=== PATIENT | male | born 1995 ===

== ENCOUNTER 2017-06-18 11:17 | Observation (INO) | payer MEDICAID ==
[2017-06-18 13:08] LABS: HEMOGLOBIN 15.7 g/dL (12.0-18.0); MEAN CELL VOLUME 90.8 fl (80.0-94.0); MEAN CORPUSCULAR HEMOGLOBIN 31.1 pg (27.0-31.0); MEAN CORPUSCULAR HGB CONC 34.3 g/dL (33.0-37.0); RBC 5.05 Mil/uL (4.40-5.90); RED CELL DISTRIBUTION WIDTH 12.6 % (11.5-14.5); WHITE BLOOD COUNT 10.8 K/uL (4.8-10.8)
[2017-06-18 13:20] LABS: ALB/GLOB RATIO 1.4 (1.0-2.1); ALBUMIN 4.8 g/dL (3.5-5.0); ALT/SGPT 82 U/L (21-72); AST/SGOT 34 U/L (17-59); BLOOD UREA NITROGEN 17 mg/dl (9-20); CALCIUM 9.9 mg/dL (8.4-10.2); GFR AFRICAN-AMERICAN > 60; GFR NON-AFRICAN AMERICAN > 60
[2017-06-18 13:33] LABS: SQUAMOUS EPITHIAL < 1 /hpf (0-5); URINE BILIRUBIN NEGATIVE (NEGATIVE); URINE BLOOD NEGATIVE (NEGATIVE); URINE CLARITY CLOUDY (Clear); URINE COLOR YELLOW (YELLOW); URINE GLUCOSE (UA) NEG (Normal); URINE LEUKOCYTE ESTERASE NEG Leu/uL (Negative); URINE NITRATE NEGATIVE (NEGATIVE); URINE PROTEIN NEGATIVE (NEGATIVE); URINE UROBILINOGEN 0.2-1.0 mg/dL (0.2-1.0)
[2017-06-18 13:46] LABS: BARBITURATES, UR NEGATIVE (NEGATIVE); BENZODIAZEPINES, UR NEGATIVE (NEGATIVE); OPIATES, UR NEGATIVE (NEGATIVE); PHENCYCLIDINE, UR NEGATIVE (NEGATIVE)
[2017-06-18 13:50] LABS: ACETAMINOPHEN < 10.0 ug/ml (10.0-30.0); SALICYLATE < 1.0 mg/dl
--- NOTE | 2017-06-18 14:51 | ED PDOC ---
HPI: Psych/Substance Abuse Time Seen by Provider: 06/18/17 11:25 Chief Complaint (Nursing): Psychiatric Evaluation Chief Complaint (Provider): Depression, Overdose History Per: Patient History/Exam Limitations: no limitations Additional Complaint(s): Last night at 10 pm pt reports taking a hand full of sertraline, aripirazole and bupropion. Pt states he wasn't specifically trying to kill himself but did not care if he . No previous attempted. Past Medical History Reviewed: Historical Data, Nursing Documentation, Vital Signs Vital Signs: Last Vital Signs Temp 99 F 06/18/17 11:50 Pulse 95 H 06/18/17 13:29 Resp 16 06/18/17 13:29 BP 136/88 06/18/17 13:29 Pulse Ox 97 06/18/17 13:29 - Medical History PMH: Depression Denies: Diabetes, Hepatitis, HIV, HTN, Seizures, Sexually Transmitted Disease Other PMH: Autism spectrum - Surgical History Surgical History: No Surg Hx - Family History Family History: States: No Known Family Hx - Living Arrangements Living Arrangements: With Family - Social History Current smoker - smoking cessation education provided: No Alcohol: None Drugs: Denies - Home Medications Home Medications: Ambulatory Orders Medication Instructions Recorded ARIPiprazole [Abilify] 5 mg PO DAILY #30 tab 08/07/16 Sertraline [Zoloft] 100 mg PO DAILY #30 tab 08/07/16 buPROPion SR [Wellbutrin SR 150 MG] 150 mg PO DAILY #30 tab 08/07/16 - Allergies Allergies/Adverse Reactions: Allergies Allergy/AdvReac Type Severity Reaction Status Date / Time No Known Allergies Allergy Verified 08/01/16 11:31 Physical Exam - Reviewed Nursing Documentation Reviewed: Yes Vital Signs Reviewed: Yes - Physical Exam Appears: Positive for: Well, Non-toxic, No Acute Distress Head Exam: Positive for: ATRAUMATIC, NORMAL INSPECTION, NORMOCEPHALIC Skin: Positive for: Normal Color, Warm, DRY Eye Exam: Positive for: Normal appearance, EOMI, PERRL ENT: Positive for: Normal ENT Inspection Neck: Positive for: Normal, Painless ROM Cardiovascular/Chest: Positive for: Regular Rate, Rhythm Respiratory: Positive for: CNT, Normal Breath Sounds Gastrointestinal/Abdominal: Positive for: Normal Exam, Bowel Sounds, Soft. Negative for: Tenderness Back: Positive for: Normal Inspection Extremity: Positive for: Normal ROM Neurologic/Psych: Positive for: Alert, Oriented - Laboratory Results Result Diagrams: 06/18/17 12:48 06/18/17 12:48 - ECG O2 Sat by Pulse Oximetry: 97 Medical Decision Making Medical Decision Making: Poison control recommends observation for 24 hours. Discussed admission to [facility]. Disposition - Clinical Impression Clinical Impression: Depression, Overdose - Patient ED Disposition Is Patient to be Admitted: Yes - Disposition Referrals: Provider DONYAD, [Primary Care Provider] - Disposition Time: 14:52 Condition: STABLE
--- NOTE | 2017-06-18 15:33 | CARD ---
APPROVED REPORT EKG Measurement Heart [id number] <Conclusion> Sinus tachycardia Nonspecific ST abnormality Abnormal ECG
--- NOTE | 2017-06-19 07:19 | CP.PCM.HP ---
History of Present Illness - History of Present Illness History of Present Illness: pt presents for taking multiple doses of seroquel, abilify, wellbutrin. states took 4-5 each bc he "didn't feel well". was not trying to hurt himself just "wasn't thinking". at present no f/c, n/v/d. took pills approx 36h ago, poison control had advised to monitor on tele until after 24h from ingestion. no sz activity, calm and cooperative. on 1:1 Present on Admission - Present on Admission Any Indicators Present on Admission: No Review of Systems - Psychiatric Psychiatric: As Per HPI, Depression Past Patient History - Infectious Disease Hx of Infectious Diseases: None - Past Medical History & Family History Past Medical History?: Yes - Past Social History Smoking Status: Never Smoked - CARDIAC Hx Cardiac Disorders: No - PULMONARY Hx Respiratory Disorders: No Hx Tuberculosis: No - NEUROLOGICAL Hx Seizures: No Other/Comment: on autism spectrum - HEENT Hx HEENT Problems: No - HEMATOLOGICAL/ONCOLOGICAL Hx Human Immunodeficiency Virus (HIV): No - MUSCULOSKELETAL/RHEUMATOLOGICAL Hx Falls: No - GENITOURINARY/GYNECOLOGICAL Hx Sexually Transmitted Disorders: No - PSYCHIATRIC Hx Psychophysiologic Disorder: Yes Hx Depression: Yes Hx Substance Use: No Other/Comment: autism spectrum - SURGICAL HISTORY Hx Surgeries: No - ANESTHESIA Hx Anesthesia: No Hx Anesthesia Reactions: No Hx Malignant Hyperthermia: No Meds Allergies/Adverse Reactions: Allergies Allergy/AdvReac Type Severity Reaction Status Date / Time No Known Allergies Allergy Verified 08/01/16 11:31 Physical Exam - Constitutional Appears: Well, Non-toxic, No Acute Distress - Head Exam Head Exam: ATRAUMATIC, NORMAL INSPECTION, NORMOCEPHALIC - Eye Exam Eye Exam: EOMI, Normal appearance, PERRL Pupil Exam: NORMAL ACCOMODATION, PERRL - ENT Exam ENT Exam: Mucous Membranes Moist, Normal Exam - Neck Exam Neck exam: Positive for: Normal Inspection - Respiratory Exam Respiratory Exam: Clear to Auscultation Bilateral, NORMAL BREATHING PATTERN - Cardiovascular Exam Cardiovascular Exam: REGULAR RHYTHM, RRR, +S1, +S2 - GI/Abdominal Exam GI & Abdominal Exam: Normal Bowel Sounds, Soft. absent: Tenderness - Extremities Exam Extremities exam: Positive for: full ROM, normal capillary refill, normal inspection, pedal pulses present - Back Exam Back exam: NORMAL INSPECTION - Neurological Exam Neurological exam: Alert, CN II-XII Intact, Normal Gait, Oriented x3, Reflexes Normal - Psychiatric Exam Psychiatric exam: Normal Affect, Normal Mood - Skin Skin Exam: Dry, Intact, Normal Color, Warm Results - Vital Signs Recent Vital Signs: Last Vital Signs Temp 98.9 F 06/19/17 05:35 Pulse 82 06/19/17 05:35 Resp 18 06/19/17 05:35 BP 129/73 06/19/17 05:35 Pulse Ox 96 06/19/17 05:35 - Labs Result Diagrams: 06/19/17 06:30 06/19/17 06:30 Labs: Laboratory Results - last 24 hr 06/18/17 06/18/17 06/18/17 12:48 12:48 13:00 WBC 10.8 RBC 5.05 Hgb 15.7 Hct 45.9 MCV 90.8 MCH 31.1 H MCHC 34.3 RDW 12.6 Plt Count 191 Sodium 141 Potassium 4.2 Chloride 104 Carbon Dioxide 26 Anion Gap 15 BUN 17 Creatinine 0.8 Est GFR ( Amer) > 60 Est GFR (Non-Af Amer) > 60 Random Glucose 116 H Calcium 9.9 Total Bilirubin 0.5 AST 34 ALT 82 H D Alkaline Phosphatase 55 Total Protein 8.1 Albumin 4.8 Globulin 3.3 Albumin/Globulin Ratio 1.4 Urine Color Urine Clarity Urine pH Ur Specific [place] Urine Protein Urine Glucose (UA) Urine Ketones Urine Blood Urine Nitrate Urine Bilirubin Urine Urobilinogen Ur Leukocyte Esterase Urine RBC (Auto) Urine Microscopic WBC Ur Squamous Epith Cells Salicylates Urine Opiates Screen Negative Urine Methadone Screen Negative Acetaminophen Ur Barbiturates Screen Negative Ur Phencyclidine Scrn Negative Ur Amphetamines Screen Negative U Benzodiazepines Scrn Negative U Oth Cocaine Metabols Negative U Cannabinoids Screen Negative Alcohol, Quantitative < 10 06/18/17 06/18/17 13:00 13:28 WBC RBC Hgb Hct MCV MCH MCHC RDW Plt Count Sodium Potassium Chloride Carbon Dioxide Anion Gap BUN Creatinine Est GFR ( Amer) Est GFR (Non-Af Amer) Random Glucose Calcium Total Bilirubin AST ALT Alkaline Phosphatase Total Protein Albumin Globulin Albumin/Globulin Ratio Urine Color Yellow Urine Clarity Cloudy Urine pH 5.0 Ur Specific [place] 1.028 Urine Protein Negative Urine Glucose (UA) Neg Urine Ketones Negative Urine Blood Negative Urine Nitrate Negative Urine Bilirubin Negative Urine Urobilinogen 0.2-1.0 Ur Leukocyte Esterase Neg Urine RBC (Auto) 1 Urine Microscopic WBC 2 Ur Squamous Epith Cells < 1 Salicylates < 1.0 Urine Opiates Screen Urine Methadone Screen Acetaminophen < 10.0 L Ur Barbiturates Screen Ur Phencyclidine Scrn Ur Amphetamines Screen U Benzodiazepines Scrn U Oth Cocaine Metabols U Cannabinoids Screen Alcohol, Quantitative Assessment & Plan (1) DVT prophylaxis Assessment and Plan: scd and ae hoae ambulation Status: Acute (2) Depression Assessment and Plan: hold psych meds bc of od. psych consult med cleared for psych admission am labs noted Status: Acute (3) Overdose Assessment and Plan: hodl meds sz ppx, no sz noted Status: Acute Decision To Admit - Pt Status Changed To: Hospital Disposition Of: Observation - . Bed Request Type: Telemetry Admitting Physician: Maria Del Rosario Cisneros
[2017-06-19 07:52] LABS: HEMOGLOBIN 15.1 g/dL (12.0-18.0); MEAN CELL VOLUME 91.6 fl (80.0-94.0); MEAN CORPUSCULAR HEMOGLOBIN 30.9 pg (27.0-31.0); MEAN CORPUSCULAR HGB CONC 33.7 g/dL (33.0-37.0); RBC 4.88 Mil/uL (4.40-5.90); WHITE BLOOD COUNT 8.9 K/uL (4.8-10.8)
[2017-06-19 07:56] LABS: ALB/GLOB RATIO 1.4 (1.0-2.1); ALBUMIN 4.5 g/dL (3.5-5.0); ALT/SGPT 85 U/L (21-72); AST/SGOT 35 U/L (17-59); BLOOD UREA NITROGEN 17 mg/dl (9-20); CALCIUM 9.7 mg/dL (8.4-10.2); GFR AFRICAN-AMERICAN > 60; GFR NON-AFRICAN AMERICAN > 60
[2017-06-19 16:04] VITALS: BP 129/81; PULSE 98; RESP 20; TEMP 98.7; O2SAT 96
--- NOTE | 2017-06-21 08:12 | CP.PCM.DIS ---
Provider - Provider Date of Admission: 06/18/17 14:53 Attending physician: Maria Del Rosario Cisneros MD Time Spent in preparation of Discharge (in minutes): 15 Diagnosis - Discharge Diagnosis (1) DVT prophylaxis Status: Acute (2) Depression Status: Acute (3) Overdose Status: Acute Hospital Course - Lab Results Lab Results: Most Recent Lab Values WBC 8.9 K/uL (4.8-10.8) 06/19/17 06:30 RBC 4.88 Mil/uL (4.40-5.90) 06/19/17 06:30 Hgb 15.1 g/dL (12.0-18.0) 06/19/17 06:30 Hct 44.7 % (35.0-51.0) 06/19/17 06:30 MCV 91.6 fl (80.0-94.0) 06/19/17 06:30 MCH 30.9 pg (27.0-31.0) 06/19/17 06:30 MCHC 33.7 g/dL (33.0-37.0) 06/19/17 06:30 RDW 13.0 % (11.5-14.5) 06/19/17 06:30 Plt Count 191 K/uL (130-400) 06/19/17 06:30 Sodium 141 mmol/l (132-148) 06/19/17 06:30 Potassium 4.2 MMOL/L (3.6-5.0) 06/19/17 06:30 Chloride 102 mmol/L (98-107) 06/19/17 06:30 Carbon Dioxide 31 mmol/L (22-30) H 06/19/17 06:30 Anion Gap 12 (10-20) 06/19/17 06:30 BUN 17 mg/dl (9-20) 06/19/17 06:30 Creatinine 1.0 mg/dl (0.8-1.5) 06/19/17 06:30 Est GFR ( Amer) > 60 06/19/17 06:30 Est GFR (Non-Af Amer) > 60 06/19/17 06:30 Random Glucose 96 mg/dL (75-110) 06/19/17 06:30 Calcium 9.7 mg/dL (8.4-10.2) 06/19/17 06:30 Total Bilirubin 0.7 mg/dl (0.2-1.3) 06/19/17 06:30 AST 35 U/L (17-59) 06/19/17 06:30 ALT 85 U/L (21-72) H 06/19/17 06:30 Alkaline Phosphatase 51 U/L (38-126) 06/19/17 06:30 Total Protein 7.7 G/DL (6.3-8.2) 06/19/17 06:30 Albumin 4.5 g/dL (3.5-5.0) 06/19/17 06:30 Globulin 3.2 gm/dL (2.2-3.9) 06/19/17 06:30 Albumin/Globulin Ratio 1.4 (1.0-2.1) 06/19/17 06:30 Urine Color Yellow (YELLOW) 06/18/17 13:00 Urine Clarity Cloudy (Clear) 06/18/17 13:00 Urine pH 5.0 (5.0-8.0) 06/18/17 13:00 Ur Specific [place] 1.028 (1.003-1.030) 06/18/17 13:00 Urine Protein Negative mg/dL (NEGATIVE) 06/18/17 13:00 Urine Glucose (UA) Neg mg/dL (Normal) 06/18/17 13:00 Urine Ketones Negative mg/dL (NEGATIVE) 06/18/17 13:00 Urine Blood Negative (NEGATIVE) 06/18/17 13:00 Urine Nitrate Negative (NEGATIVE) 06/18/17 13:00 Urine Bilirubin Negative (NEGATIVE) 06/18/17 13:00 Urine Urobilinogen 0.2-1.0 mg/dL (0.2-1.0) 06/18/17 13:00 Ur Leukocyte Esterase Neg [place]/uL (Negative) 06/18/17 13:00 Urine RBC (Auto) 1 /hpf (0-3) 06/18/17 13:00 Urine Microscopic WBC 2 /hpf (0-5) 06/18/17 13:00 Ur Squamous Epith Cells < 1 /hpf (0-5) 06/18/17 13:00 Salicylates < 1.0 mg/dl 06/18/17 13:28 Urine Opiates Screen Negative (NEGATIVE) 06/18/17 13:00 Urine Methadone Screen Negative (NEGATIVE) 06/18/17 13:00 Acetaminophen < 10.0 ug/ml (10.0-30.0) L 06/18/17 13:28 Ur Barbiturates Screen Negative (NEGATIVE) 06/18/17 13:00 Ur Phencyclidine Scrn Negative (NEGATIVE) 06/18/17 13:00 Ur Amphetamines Screen Negative (NEGATIVE) 06/18/17 13:00 U Benzodiazepines Scrn Negative (NEGATIVE) 06/18/17 13:00 U Oth Cocaine Metabols Negative (NEGATIVE) 06/18/17 13:00 U Cannabinoids Screen Negative (NEGATIVE) 06/18/17 13:00 Alcohol, Quantitative < 10 mg/dl (0-10) 06/18/17 12:48 Discharge Exam - Head Exam Head Exam: ATRAUMATIC, NORMAL INSPECTION, NORMOCEPHALIC Discharge Plan - Follow Up Plan Condition: STABLE Disposition: HOME/ ROUTINE Instructions: Depression (DC) Additional Instructions: cleared for psych admission no dz final dx-od, depression meds per psych Referrals: Provider TBD, [Non-Staff] -
== END 2017-06-19 16:46 | disposition home or self-care (01) ==
LOC: SUPCPDRO 11:17 → H.ER 11:17 → H.ERHOLD 14:53 → H.TEL 16:37
PROVIDERS: ADMIT Family Medicine; ATTEND Family Medicine
DX: F32.9 Major depressive disorder, single episode, unspecified (principal); F84.0 Autistic disorder; Z79.899 Other long term (current) drug therapy
CPT/HCPCS: 36415; 80053; 80320; 80324; 80329; 80345; 80346; 80349; 80353; 80358; 80361; 81003; 83992; 85027; 93005; 99285; G0378

== ENCOUNTER 2017-06-19 17:00 | Inpatient (IN) | payer MEDICAID ==
[2017-06-19 17:35] VITALS: BMI 29.9
[2017-06-19] MEDS ORDERED: Alum-Mag Hydrox-Simethicone Susp (30 mL) PO PRN (18:08)
[2017-06-19] MEDS ORDERED: DiphenhydrAMINE 50 mg/ml Inj IM PRN (18:08)
[2017-06-19] MEDS ORDERED: Magnesium Hydroxide Susp 30 ml UD PO PRN (18:08)
--- NOTE | 2017-06-19 18:35 | PCM.BM ---
<Lady Kent M - Last Filed: 06/19/17 18:33> Treatment Plan Problems - Problems identified on initial assessmt Hopelessness/Helplessness Date Initiated: 06/19/17 Time Initiated: 18:34 Status: Active Treatment assets and liabiliti Patient Assests: cooperative, ADL independent, good support system, good past tx response, other Patient Liabilities: financial problems, relationship conflicts, other - Milieu Protocol Maintain good personal hygiene: daily Encourage regular showers, daily Remind patient to perform daily oral care, daily Assist patient to perform ADL's Conduct patient checks and document Observation sheet: Q15 minutes Maintain personal safety: every shift Educate patient to report safety concerns to staff, every shift Monitor environment for contraband/sharps Medication safety: Monitor for expected outcome, potential side effects: daily, Assess barriers to learning: daily, Assess readiness for medication education: daily <Nick Costello - Last Filed: 06/21/17 16:05> Treatment Plan Problems - Problems identified on initial assessmt Hopelessness/Helplessness Date Initiated: 06/19/17 Time Initiated: 18:34 Status: Active Feelings of worthlessness Date Initiated: 06/19/17 Time Initiated: 18:37 Assessment reference: NA - Diagnosis (1) Depression Status: Acute Interventions: 06/21/17 16:05 psychotherapy, pharmacotherapy Family Contact - Outside Agency Agency 1 Care involvment: Information-sharing Agency contact name: [facility]. Dr. Curiel and Uzma Figueroa Agency contact number: [phone] Treatment Plan Review - Problem Hopelessness/Helplessness Time Initiated: 18:34 Feelings of worthlessness Time Initiated: 18:37
--- NOTE | 2017-06-19 18:37 | PCM.BM ---
<DiamanteCharleyjesusLady Bud - Last Filed: 06/19/17 18:36> Treatment Plan Problems - Problems identified on initial assessmt Hopelessness/Helplessness Date Initiated: 06/19/17 Time Initiated: 18:34 Status: Active Feelings of worthlessness Date Initiated: 06/19/17 Time Initiated: 18:37 Assessment reference: NA Treatment assets and liabiliti Patient Assests: cooperative, self-reliant, ADL independent, good support system , good past tx response, other Patient Liabilities: financial problems, relationship conflicts, other - Milieu Protocol Maintain good personal hygiene: daily Encourage regular showers, daily Remind patient to perform daily oral care, daily Assist patient to perform ADL's Conduct patient checks and document Observation sheet: Q15 minutes Maintain personal safety: every shift Educate patient to report safety concerns to staff, every shift Monitor environment for contraband/sharps Medication safety: Monitor for expected outcome, potential side effects: daily, Assess barriers to learning: daily, Assess readiness for medication education: daily <Georges Mariscal - Last Filed: 06/20/17 17:11> Family Contact Family involvement: Family/SO is involved Family contact: Patient agrees to contact, Family has been contacted by patient Family contact name: Cinda Javed (Mother), Dennis Ruiz (Brother) Family contacted how many times per week?: 2 - Outside Agency Agency 1 Care involvment: Information-sharing Agency contact name: [facility]. Dr. Curiel and Uzma Figueroa Agency contact number: [phone] - Goals for Treatment Patient goals for treatment: Pt would like his depression to be minimized to a level in which he can function without distress. Discharge/Continuing Care - Education Needs Education Needs: Family Medication, Family Coping Skills, Family Aftercare Safety Plan, Patient Medication, Patient Diagnosis/Disease Process, Patient Coping Skills, Patient Community resources, Patient Aftercare Safety Plan - Discharge Discharge Criteria: Tolerates medication w/o severe side effects, Free of Suicidal thoughts, Normal sleep pattern, No longer exhibiting s/s of withdrawal , Reduction of target symptoms Discharge to:: Home, With Family <Gricelda Martinez - Last Filed: 06/21/17 12:32> Discharge/Continuing Care - Treatment Team Participation Patient/Family/SO Statement: 06/21/17 12:32 Patient attended tx team and was able to actively engage in discussion regarding progress on 3NP, tx goals and discharge planning. Patient presents as anxious and depressed but to a slightly lesser degree than upon admission. Affect is flat. Speech: normal rate and tone. Thoughts are clear and connected. Patient socializing appropriately with select peers but is mostly withdrawn on 3NP. Patient expresses being motivated for tx and would like to return to [facility] with [facility]. Discussed with Family/SO: No Was Patient/Family/SO present at Treatment Team Meeting: Yes <Nick Costello - Last Filed: 06/22/17 13:11> - Diagnosis (1) Depression Status: Acute Interventions: 06/22/17 13:11 psychotherapy pharmacotherapy
--- NOTE | 2017-06-20 08:13 | CP.PCM.HP ---
History of Present Illness - History of Present Illness History of Present Illness: pt admitted to [facility] after od on home meds. no sz activity no complaints. no f/c , n/v/d. Present on Admission - Present on Admission Any Indicators Present on Admission: No Review of Systems - Psychiatric Psychiatric: As Per HPI Past Patient History - Infectious Disease Hx of Infectious Diseases: None - Past Medical History & Family History Past Medical History?: Yes - Past Social History Smoking Status: Never Smoked - CARDIAC Hx Cardiac Disorders: No - PULMONARY Hx Respiratory Disorders: No Hx Tuberculosis: No - NEUROLOGICAL Hx Seizures: No Other/Comment: on autism spectrum - HEENT Hx HEENT Problems: No - HEMATOLOGICAL/ONCOLOGICAL Hx Human Immunodeficiency Virus (HIV): No - MUSCULOSKELETAL/RHEUMATOLOGICAL Hx Falls: No - GENITOURINARY/GYNECOLOGICAL Hx Sexually Transmitted Disorders: No - PSYCHIATRIC Hx Anxiety: Yes Hx Substance Use: No - SURGICAL HISTORY Hx Surgeries: No - ANESTHESIA Hx Anesthesia: No Hx Anesthesia Reactions: No Hx Malignant Hyperthermia: No Meds Allergies/Adverse Reactions: Allergies Allergy/AdvReac Type Severity Reaction Status Date / Time No Known Allergies Allergy Verified 08/01/16 11:31 Physical Exam - Constitutional Appears: Well, Non-toxic, No Acute Distress - Head Exam Head Exam: ATRAUMATIC, NORMAL INSPECTION, NORMOCEPHALIC - Eye Exam Eye Exam: EOMI, Normal appearance, PERRL Pupil Exam: NORMAL ACCOMODATION, PERRL - ENT Exam ENT Exam: Mucous Membranes Moist, Normal Exam - Neck Exam Neck exam: Positive for: Normal Inspection - Respiratory Exam Respiratory Exam: Clear to Auscultation Bilateral, NORMAL BREATHING PATTERN - Cardiovascular Exam Cardiovascular Exam: REGULAR RHYTHM, RRR, +S1, +S2 - GI/Abdominal Exam GI & Abdominal Exam: Normal Bowel Sounds, Soft. absent: Tenderness - Extremities Exam Extremities exam: Positive for: full ROM, normal capillary refill, normal inspection, pedal pulses present - Back Exam Back exam: NORMAL INSPECTION - Neurological Exam Neurological exam: Alert, CN II-XII Intact, Normal Gait, Oriented x3, Reflexes Normal - Psychiatric Exam Psychiatric exam: Normal Affect, Normal Mood - Skin Skin Exam: Dry, Intact, Normal Color, Warm Assessment & Plan (1) DVT prophylaxis Assessment and Plan: ambulation Status: Acute (2) Depression Assessment and Plan: meds, therapies, interventions as per psych Status: Acute (3) Overdose Assessment and Plan: meds, therapies, interventions as per psych cont to monitor for sz lft in am Status: Acute Decision To Admit - Pt Status Changed To: Hospital Disposition Of: Inpatient - Admit Certification Admit to Inpatient:: After my assessment, the patient will require hospitalization for at least two midnights. This is because of the severity of symptoms shown, intensity of services needed, and/or the medical risk in this patient being treated as an outpatient. - . Bed Request Type: Adult Psychiatry Admitting Physician: Maria Del Rosaroi Cisneros
[2017-06-20 09:37] VITALS: RESP 18
[2017-06-20 10:35] LABS: T4 6.31 ug/dl (5.5-11.0)
--- NOTE | 2017-06-20 19:51 | PCM.PSYCH ---
Initial Psychiatric Evaluation - Initial Psychiatric Evaluation Chief Complaint (in patient's own words): signed in for voluntary admission from telemetry Patient's Reaction to Hospitalization: voluntary History of Present Illness and Precipitating Events: reportedly was at home, had impulsive ingestion of abilify, zoloft, wellbutrin after argument with mother. 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 reports that is being treated by dr hilario at [facility] and [facility]- reports positive rapport. reports several previous inpt admissions including [facility]. lives at home with mother and siblings. taking classes at [employer]. reports in past attending smaller classes and feels as though he was classified as "being withint the autism spectrim". reports that generally likes to spend time alone or doing activities that do not entail much interaction with others. reports when in school in past or at home when upset yell or walk out. Current Medications: Active Medications Generic Name Dose Route Start Last Admin Trade Name Freq PRN Reason Stop Dose Admin Acetaminophen 650 mg 06/19/17 18:08 Tylenol 325mg Tab PO Q4 PRN Pain, Mild (1-3) Al Hydrox/Mg Hydrox/Simethicone 30 ml 06/19/17 18:08 Maalox Plus 30 Ml PO Q4 PRN Dyspepsia Diphenhydramine HCl 50 mg 06/19/17 18:08 Benadryl IM Q6 PRN Extrapyramidal S/S Unable PO Diphenhydramine HCl 50 mg 06/19/17 18:15 Benadryl PO Q6 PRN dystonic reaction /EPS Diphenhydramine HCl 50 mg 06/19/17 18:18 Benadryl PO HS PRN Sleep Famotidine 20 mg 06/20/17 09:00 06/20/17 09:33 Pepcid PO 20 mg DAILY GELACIO Administration Haloperidol 5 mg 06/19/17 18:08 Haldol PO Q4 PRN Agitation Haloperidol Lactate 5 mg 06/19/17 18:08 Haldol IM Q4 PRN Agitation, Unable to Take PO Lorazepam 2 mg 06/19/17 18:08 Ativan IM Q4 PRN Anxiety/Agitation,Unable PO Lorazepam 2 mg 06/19/17 18:19 Ativan PO Q4 PRN Anxiety Magnesium Hydroxide 30 ml 06/19/17 18:08 Milk Of Magnesia PO HS PRN Constipation Past Psychiatric History - Past Psychiatric History Previous Treatment History: Intensive Outpatient Prior Professional Help: both inpt and opd- Prior Psychiatric Treatment: [facility]- dr frederic interiano History of Abuse: denies History of ETOH/Drug Use: denies History of Family Illness: mother gets nervous uncertain if is being treated Pertinent Medical Hx (Current Medical&Sleep Prob, Allergies): Allergies Allergy/AdvReac Type Severity Reaction Status Date / Time No Known Allergies Allergy Verified 08/01/16 11:31 ARIPiprazole [Abilify] 5 mg PO DAILY #30 tab 08/07/16 Sertraline [Zoloft] 100 mg PO DAILY #30 tab 08/07/16 buPROPion SR [Wellbutrin SR 150 MG] 150 mg PO DAILY #30 tab 08/07/16 Review of Systems - Psychiatric Psychiatric: Depression Mental Status Examination - Affect Affect: Constricted, Blunted - Motor Activity Motor Activity: Calm, Psychomotor Retardation - Reliability in Providing Information Reliability in Providing Information: Fair - Speech Additional comments: some hesitancy, some pausity, minimal details unless prompted - Formal Thought Process Additional comments: blocking,pausity, underproductive unless prompted - Obsessions/Compulsions Obsessions: No Compulsions: No - Cognitive Functions Orientation: Person, Place, Situation, Time Sensorium: Alert Attention/Concentration: Easily distracted Judgement: Imparied, as evidence by: Poor judgement - Risk Risk: Diminished functioning - Strength & Assets Inventory Strength & Assets Inventory: Cooperative (recent suicide attempt impulse ) DSM 5 DX - DSM 5 DSM 5 Diagnosis: 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 Austism Spectrum S/p suicide [id number] on inpt telemetry - Recommended/Plan of Treatment Treatment Recommendations and Plan of Treatment: inpt milieu vital signs and clinical observation per protocol and per clinical status prns per unit protocol hospitalist consults start sertraline 25mg po daily first dose now*team can reconsider restart of buproprion, abilify discharge planning in progress [facility] dr interiano[facility] Projected ELOS: 5-7 days Prognosis: guarded Discharge Plan and Discharge Criteria: safety - Smoking Cessation Smoking Cessation Initiated: No Reason for not providing: pt defers
[2017-06-21 06:31] LABS: BASO % 0.5 % (0.0-2.0); EOS # 0.2 K/uL (0.0-0.7); EOS % 2.2 % (0.0-4.0); HEMOGLOBIN 15.2 g/dL (12.0-18.0); LYMPH # 2.5 K/uL (1.0-4.3); LYMPH % 33.1 % (20.0-40.0); MEAN CELL VOLUME 92.1 fl (80.0-94.0); MEAN CORPUSCULAR HEMOGLOBIN 31.3 pg (27.0-31.0); MEAN PLATELET VOLUME 7.9 fl (7.2-11.7); MONO # 0.8 K/uL (0.0-0.8); MONO % 9.9 % (0.0-10.0); NEUT # 4.2 K/uL (1.8-7.0); NEUT % 54.3 % (50.0-75.0); NRBC % 0.1 % (0.0-0.0); RBC 4.86 Mil/uL (4.40-5.90); RED CELL DISTRIBUTION WIDTH 12.8 % (11.5-14.5); WHITE BLOOD COUNT 7.6 K/uL (4.8-10.8)
[2017-06-21 06:42] LABS: ALB/GLOB RATIO 1.4 (1.0-2.1); ALBUMIN 4.3 g/dL (3.5-5.0); ALT/SGPT 73 U/L (21-72); AST/SGOT 30 U/L (17-59); BLOOD UREA NITROGEN 18 mg/dl (9-20); CALCIUM 9.6 mg/dL (8.4-10.2); GFR AFRICAN-AMERICAN > 60; GFR NON-AFRICAN AMERICAN > 60
[2017-06-21] MEDS: buPROPion SR 150 MG TABLET PO SCH (13:23)
--- NOTE | 2017-06-21 16:23 | PCM.PYCHPN ---
Psychiatric Progress Note - Psychiatric Progress Note Patient seen today, length of contact: pt evaluated discussed with team chart reviewed Patient Chief Complaint: I am stuck do not know what to do with my future Problems Identified/Issues Discussed: pt on evaluation reported feeling depressed, unable to decide what to do with his future, continues to report passive suicidal ideations, stating he does not care to be living ,denied any plan on the unit, denied command hallucinations, low energy, anhedonia compliant with medications , attending groups DSM 5 Symptoms Update: major depression recurrent Medication Change: Yes (start wellbutin 150mg) Medical Record Reviewed: Yes Mental Status Examination - Cognitive Function Orientation: Person, Place, Situation, Time Attention: WNL Concentration: WNL Association: WNL Fund of Knowledge: [facility] Decription of patient's judgement and insights: partial insight and poor judgment - Mood Mood: Depressed - Affect Affect: Constricted, Blunted - Speech Speech: Soft - Formal Thought Process Formal Thought Process: Circumstantial Psychotic Thoughts and Behaviors: denied psychotic symptoms, non elicited - Suicidal Ideation Suicidal Ideation: No - Homicidal Ideation Homicidal Ideation: No Goal/Treatment Plan - Goal/Treatment Plan Need for Continued Stay: Severe depression anxiety, Discharge may exacerbated symptoms Progress Toward Problem(s) and Goals/Treatment Plan: pt continues to be depressed increase wellbutrin to 150mg CBT and group therapy Estimated Date of D/C: 06/25/17
[2017-06-22] MEDS: buPROPion SR 150 MG TABLET PO SCH (08:41)
[2017-06-22 09:16] VITALS: BP 120/75; PULSE 69; TEMP 97.7
--- NOTE | 2017-06-22 13:19 | PCM.PYCHPN ---
Psychiatric Progress Note - Psychiatric Progress Note Patient seen today, length of contact: pt evaluated discussed with team chart reviewed Patient Chief Complaint: Ihad better sleep and it helped Problems Identified/Issues Discussed: pt on evaluation reported feeling less depressed,relates that to better sleep also stated that he was visited by his family yesterday which had a positive effect on his mood, , pt continues to express negative thoughts in reference to his future, discussed with pt more possible alternative positive thoughts encouraged pt to attend groups no reported side effects of medications DSM 5 Symptoms Update: major depression recurrent severe Medication Change: No Medical Record Reviewed: Yes Mental Status Examination - Cognitive Function Orientation: Person, Place, Situation, Time Attention: WNL Concentration: WNL Association: WNL Fund of Knowledge: [facility] Decription of patient's judgement and insights: partial insight and poor judgment - Mood Mood: Depressed - Affect Affect: Constricted, Blunted - Speech Speech: Soft - Formal Thought Process Formal Thought Process: Circumstantial Psychotic Thoughts and Behaviors: denied psychotic symptoms, non elicited - Suicidal Ideation Suicidal Ideation: No - Homicidal Ideation Homicidal Ideation: No Goal/Treatment Plan - Goal/Treatment Plan Need for Continued Stay: Severe depression anxiety, Discharge may exacerbated symptoms Progress Toward Problem(s) and Goals/Treatment Plan: continue with trazdone 50mg and wellbutrin 150mg CBT and group therapy Estimated Date of D/C: 06/25/17
--- NOTE | 2017-06-23 07:20 | CP.PCM.PN ---
Subjective - Date & Time of Evaluation Date of Evaluation: 06/23/17 Time of Evaluation: 07:19 - Subjective Subjective: no complaints. distress. no f/c, n/v/d. psych notes noted. est dc date wednesday06/25/17 calm and cooperative Objective - Vital Signs/Intake and Output Vital Signs (last 24 hours): Temp Pulse Resp BP Pulse Ox 97.7 F 69 18 120/75 06/22/17 09:16 06/22/17 09:16 06/22/17 09:16 06/22/17 09:16 - Medications Medications: Current Medications Acetaminophen (Tylenol 325mg Tab) 650 mg PO Q4 PRN PRN Reason: Pain, Mild (1-3) Al Hydrox/Mg Hydrox/Simethicone (Maalox Plus 30 Ml) 30 ml PO Q4 PRN PRN Reason: Dyspepsia Bupropion HCl (Wellbutrin Sr 150 Mg) 150 mg PO DAILY [facility] Last Admin: 06/22/17 08:41 Dose: 150 mg Diphenhydramine HCl (Benadryl) 50 mg IM Q6 PRN PRN Reason: Extrapyramidal S/S Unable PO Diphenhydramine HCl (Benadryl) 50 mg PO Q6 PRN PRN Reason: dystonic reaction /EPS Diphenhydramine HCl (Benadryl) 50 mg PO HS PRN PRN Reason: Sleep Famotidine (Pepcid) 20 mg PO DAILY [facility] Last Admin: 06/22/17 08:42 Dose: 20 mg Haloperidol (Haldol) 5 mg PO Q4 PRN PRN Reason: Agitation Haloperidol Lactate (Haldol) 5 mg IM Q4 PRN PRN Reason: Agitation, Unable to Take PO Lorazepam (Ativan) 2 mg IM Q4 PRN PRN Reason: Anxiety/Agitation,Unable PO Lorazepam (Ativan) 2 mg PO Q4 PRN PRN Reason: Anxiety Magnesium Hydroxide (Milk Of Magnesia) 30 ml PO HS PRN PRN Reason: Constipation Trazodone HCl (Desyrel) 50 mg PO HS [facility] Last Admin: 06/22/17 21:10 Dose: 50 mg - Labs Labs: 06/21/17 05:35 06/21/17 05:35 - Constitutional Appears: Well, Non-toxic, No Acute Distress - Head Exam Head Exam: ATRAUMATIC, NORMAL INSPECTION, NORMOCEPHALIC - Eye Exam Eye Exam: EOMI, Normal appearance, PERRL Pupil Exam: NORMAL ACCOMODATION, PERRL - ENT Exam ENT Exam: Mucous Membranes Moist, Normal Exam - Neck Exam Neck Exam: Full ROM, Normal Inspection. absent: Lymphadenopathy - Respiratory Exam Respiratory Exam: Clear to Ausculation Bilateral, NORMAL BREATHING PATTERN - Cardiovascular Exam Cardiovascular Exam: REGULAR RHYTHM, RRR, +S1, +S2. absent: Murmur - GI/Abdominal Exam GI & Abdominal Exam: Soft, Normal Bowel Sounds. absent: Tenderness - Extremities Exam Extremities Exam: Full ROM, Normal Capillary Refill, Normal Inspection. absent : Joint Swelling, Pedal Edema - Back Exam Back Exam: NORMAL INSPECTION - Neurological Exam Neurological Exam: Alert, Awake, CN II-XII Intact, Normal Gait, Oriented x3 - Psychiatric Exam Psychiatric exam: Normal Affect, Normal Mood - Skin Skin Exam: Dry, Intact, Normal Color, Warm Assessment and Plan (1) DVT prophylaxis Status: Acute (2) Depression Status: Deleted (3) Overdose Status: Acute - Assessment and Plan (Free Text) Assessment: (1) DVT prophylaxis Assessment and Plan: ambulation Status: Acute (2) Depression Assessment and Plan: meds, therapies, interventions as per psych Status: Acute (3) Overdose Assessment and Plan: meds, therapies, interventions as per psych cont to monitor for sz lft in am Status: Acute
[2017-06-23] MEDS: buPROPion SR 150 MG TABLET PO SCH (09:35)
--- NOTE | 2017-06-23 13:28 | PCM.PYCHPN ---
Psychiatric Progress Note - Psychiatric Progress Note Patient seen today, length of contact: pt evaluated discussed with team chart reviewed Patient Chief Complaint: I am trying to build skills to cope with depression Problems Identified/Issues Discussed: pt on evaluation stated that he had better sleep, feeling less depressed, continues to be feeling anxious when he thinks about his career and future plans , discussed with pt importance of setting goals and prioratizing them , pt stated that his energy level is better and attending groups helps to cope with his depression denied side effects of medications denied any current SUICIDAL or homicidal ideations DSM 5 Symptoms Update: major depression Medication Change: No Medical Record Reviewed: Yes Mental Status Examination - Cognitive Function Orientation: Person, Place, Situation, Time Attention: WNL Concentration: WNL Association: WNL Fund of Knowledge: [facility] Decription of patient's judgement and insights: partial insight and poor judgment - Mood Mood: Depressed, Anxious - Affect Affect: Constricted, Blunted - Speech Speech: Soft - Formal Thought Process Formal Thought Process: Circumstantial Psychotic Thoughts and Behaviors: denied psychotic symptoms, non elicited - Suicidal Ideation Suicidal Ideation: No - Homicidal Ideation Homicidal Ideation: No Goal/Treatment Plan - Goal/Treatment Plan Need for Continued Stay: Severe depression anxiety, Discharge may exacerbated symptoms Progress Toward Problem(s) and Goals/Treatment Plan: continue with trazdone 50mg and wellbutrin 150mg CBT and group therapy Estimated Date of D/C: 06/25/17
[2017-06-24] MEDS: buPROPion SR 150 MG TABLET PO SCH (09:15)
--- NOTE | 2017-06-24 12:13 | PCM.PYCHPN ---
Psychiatric Progress Note - Psychiatric Progress Note Patient seen today, length of contact: pt evaluated discussed with team chart reviewed Patient Chief Complaint: I feel better Problems Identified/Issues Discussed: pt on evaluation , presenting with brighter affect today, less anxious and interactive with staff and other patients, attending groups reported improved mood and better sleep, no side effects of medications denied any current suicidal or homicidal ideations DSM 5 Symptoms Update: major depression recurrent severe without psychotic features Medication Change: No Medical Record Reviewed: Yes Mental Status Examination - Cognitive Function Orientation: Person, Place, Situation, Time Attention: WNL Concentration: WNL Association: WNL Fund of Knowledge: [facility] Decription of patient's judgement and insights: partial insight and fair judgment - Mood Mood: Neutral - Affect Affect: Constricted - Speech Speech: Appropriate - Formal Thought Process Formal Thought Process: Circumstantial Psychotic Thoughts and Behaviors: denied psychotic symptoms, non elicited - Suicidal Ideation Suicidal Ideation: No - Homicidal Ideation Homicidal Ideation: No Goal/Treatment Plan - Goal/Treatment Plan Need for Continued Stay: Severe depression anxiety, Discharge may exacerbated symptoms Progress Toward Problem(s) and Goals/Treatment Plan: continue with trazdone 50mg and wellbutrin 150mg CBT and group therapy Estimated Date of D/C: 06/25/17
[2017-06-25] MEDS: buPROPion SR 150 MG TABLET PO SCH (08:03)
--- NOTE | 2017-06-25 10:16 | PCM.PYCHDC ---
Mental Status Examination - Mental Status Examination Orientation: Person, Place, Situation, Time Memory: Intact Mood: Neutral Affect: Broad Speech: Appropriate Attention: WNL Concentration: WNL Association: WNL Fund of Knowledge: WNL Formal Thought Process: No Impairment Description of patient's judgement and insight: partial insight and fair judgment Psychotic Thoughts and Behaviors: denied psychotic symptoms, non elicited Suicidal Ideation: No Current Homicidal Ideation?: No Discharge Summary - Discharge Note Reason for Hospitalization: reportedly was at home, had impulsive ingestion of abilify, zoloft, wellbutrin after argument with mother. 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 reports that is being treated by dr hilario at [facility] and [facility]- reports positive rapport. reports several previous inpt admissions including [facility]. lives at home with mother and siblings. taking classes at [employer]. reports in past attending smaller classes and feels as though he was classified as "being withint the autism spectrim". reports that generally likes to spend time alone or doing activities that do not entail much interaction with others. reports when in school in past or at home when upset yell or walk out. Consultations:: List each consultation separately and include: 1. Reason for request. 2. Findings. 3. Follow-up Summary of Hospital Course include:: 1. Description of specific treatment plan utilized for patients during their course of treatmen. 2. Summarize the time- course for resolution of acute symptoms and/or regressed behaviors. 3. Describe issues identified and worked on during hospitalization. 4. Describe medication utilized. 5. Describe medical problems identified and treated. 6. Reassessment of suicide risk Summary of Hospital Course: pt on admission was depressed, anhedonic , low energy pt was started on wellbutrin 75mg , it was uptitrated to 150mg pt was also started on trazdone 50mg for insomnia CBT and group therapy provided no reported side effects of medication pt was compliant with treatment, gradually presented with brighter affect on discharge mental status was stable, pt denied any current suicidal or homicidal ideations. pt will follow up at outpatient clinic - Diagnosis (1) Depression Current Visit: Yes Status: Acute - Final Diagnosis (DSM 5) Condition upon Discharge: GOOD DSM 5: major depression recurrent severe without psychotic features Disposition: HOME/ ROUTINE Follow-up Treatment Plan: continue with trazdone 50mg and wellbutrin 150mg CBT and group therapy Prescriptions/Medication Reconciliation: buPROPion SR [Wellbutrin SR 150 MG] 150 mg PO DAILY 30 Days #30 tab Famotidine [Pepcid] 20 mg PO DAILY 30 Days #30 tab traZODone [Desyrel] 50 mg PO HS 30 Days #30 tab
== END 2017-06-25 12:49 | disposition home or self-care (01) | DRG 430 ==
LOC: H.PSYCH 17:34
PROVIDERS: ADMIT Psychiatry & Neurology Psychiatry; ATTEND Psychiatry & Neurology Psychiatry
PROC: GZHZZZZ Group Psychotherapy (ICD-10-PCS; principal; 2017-06-19)
PROC: GZ58ZZZ Individual Psychotherapy, Cognitive-Behavioral (ICD-10-PCS; 2017-06-19)
DX: F33.2 Major depressive disorder, recurrent severe without psychotic features (principal); R45.851 Suicidal ideations; F84.0 Autistic disorder; R45.87 Impulsiveness